=== PATIENT | female | born 1940 | race Two or more races ===

== ENCOUNTER 2019-01-17 10:00 | Outpatient (CLI) | payer MEDICARE, BC | END 2019-01-17 23:59 | disposition home health service (06) | LOC: WOU 10:00 | PROVIDERS: ATTEND Specialist | DX: L97.812 Non-pressure chronic ulcer of other part of right lower leg with fat layer exposed (principal); Z96.651 Presence of right artificial knee joint; F17.210 Nicotine dependence, cigarettes, uncomplicated | CPT/HCPCS: 87070; 87077; 87186; A6209; G0463 ==

== ENCOUNTER 2019-01-24 09:55 | Outpatient (CLI) | payer MEDICARE, BC | END 2019-01-24 23:59 | disposition home health service (06) | LOC: WOU 09:55 | PROVIDERS: ATTEND Specialist | DX: L97.812 Non-pressure chronic ulcer of other part of right lower leg with fat layer exposed (principal); S80.821S Blister (nonthermal), right lower leg, sequela; X58.XXXS Exposure to other specified factors, sequela; Z96.651 Presence of right artificial knee joint; F17.200 Nicotine dependence, unspecified, uncomplicated | CPT/HCPCS: 11042 ==

== ENCOUNTER 2019-01-31 09:55 | Outpatient (CLI) | payer MEDICARE, BC | END 2019-01-31 23:59 | disposition home health service (06) | LOC: WOU 09:55 | PROVIDERS: ATTEND Specialist | DX: L97.812 Non-pressure chronic ulcer of other part of right lower leg with fat layer exposed (principal); S80.821S Blister (nonthermal), right lower leg, sequela; X58.XXXS Exposure to other specified factors, sequela; Z96.651 Presence of right artificial knee joint; F17.200 Nicotine dependence, unspecified, uncomplicated | CPT/HCPCS: 11042 ==

== ENCOUNTER → 2019-02-07 | Outpatient (CLI) | payer MEDICARE, BC | END | disposition home health service (06) | LOC: WOU 10:00 | PROVIDERS: ATTEND Specialist | DX: S80.821S Blister (nonthermal), right lower leg, sequela (principal); X58.XXXS Exposure to other specified factors, sequela; Z96.651 Presence of right artificial knee joint; F17.200 Nicotine dependence, unspecified, uncomplicated | CPT/HCPCS: 11042 ==

== ENCOUNTER 2019-02-14 08:45 | Outpatient (CLI) | payer MEDICARE, BC | END 2019-02-14 23:59 | disposition home health service (06) | LOC: WOU 08:45 | PROVIDERS: ATTEND Specialist | DX: L97.812 Non-pressure chronic ulcer of other part of right lower leg with fat layer exposed (principal); S80.821S Blister (nonthermal), right lower leg, sequela; X58.XXXS Exposure to other specified factors, sequela; Z96.651 Presence of right artificial knee joint; F17.200 Nicotine dependence, unspecified, uncomplicated | CPT/HCPCS: 11042 ==

== ENCOUNTER 2019-02-21 10:00 | Outpatient (CLI) | payer MEDICARE, BC | END 2019-02-21 23:55 | disposition home health service (06) | LOC: WOU 10:00 | PROVIDERS: ATTEND Specialist | DX: L97.812 Non-pressure chronic ulcer of other part of right lower leg with fat layer exposed (principal); Z96.651 Presence of right artificial knee joint; F17.200 Nicotine dependence, unspecified, uncomplicated | CPT/HCPCS: 11042 ==

== ENCOUNTER 2019-02-28 10:00 | Outpatient (CLI) | payer MEDICARE, BC | END 2019-02-28 23:59 | disposition home health service (06) | LOC: WOU 10:00 | PROVIDERS: ATTEND Specialist | DX: Z09 Encounter for follow-up examination after completed treatment for conditions other than malignant neoplasm (principal); Z96.651 Presence of right artificial knee joint; F17.200 Nicotine dependence, unspecified, uncomplicated | CPT/HCPCS: G0463 ==